=== PATIENT | female | born 1925 | race Caucasian/White ===

== ENCOUNTER 2017-06-23 13:32 | Inpatient (IN) | payer MEDICARE, OTHER ==
[~2017-06-23] VITALS: Ht 170.2 cm; Wt 75.9 kg
--- NOTE | ~2017-06-23 | PN ---
PATIENT:NATHALIE GUERRERO MEDICAL RECORD: [id number] LOCATION:[facility] ADMISSION DATE: 06/23/17 PROGRESS NOTE DATE OF SERVICE: 07/01/2017 SUBJECTIVE: The patient's case was discussed with staff. She has no new complaint. OBJECTIVE: The patient is in good behavioral control with limited insight about her condition. She generally tolerates her medicines well. She is severely impaired cognitively. Her sons from [place] are coming here soon. They are going to take her back to [place]. ASSESSMENT: No change in diagnoses. PLAN: Supportive and educational interventions were made. correction prognosis is guarded. TRANSINT:[id number] Voice Confirmation ID: [id number] DOCUMENT ID: [id number] JOSHUA ADEN MD CC: [id number] DICTATION DATE: 07/01/17 1355 KNITTING MACHINE OPERATOR: 07/01/17 1652 ADM IN [facility] [address] [place] [address]
[2017-06-23 14:06] LABS: BASOPHILS 0.2 % (0-2); EOSINOPHILS 4.2 % (0-7); HEMATOCRIT 39.8 % (36.0-48.0); HEMOGLOBIN 12.8 g/dL (12-16); IMMATURE GRANULOCYTES 0.2 % (0-5); LYMPHOCYTES 13.7 % (15-50); MCH 28.7 pg (26.0-34.0); MCHC 32.2 g/dL (31.0-37.0); MCV 89.2 fL (80.0-100.0); MEAN PLATELET VOLUME 9.2 fL (7.4-10.4); MONOCYTES 7.1 % (2-11); NEUTROPHILS 74.6 % (40-80); RBC 4.46 10x6/uL (4.00-5.40); WBC 5.2 10x3/uL (4.8-10.8)
[2017-06-23 14:21] LABS: ALBUMIN 3.5 g/dL (3.4-5.0); ANION GAP 7.9 mmol/L (8-16); BILIRUBIN - TOTAL 0.46 mg/dL (0.2-1.3); CALCIUM 9.1 mg/dL (8.5-10.1); CARBON DIOXIDE 32.9 mmol/L (21.0-32.0); CREATININE - SERUM 1.2 mg/dL (0.6-1.3); POTASSIUM - SERUM 3.8 mmol/L (3.5-5.1); PROTEIN - SERUM 7.1 g/dL (6.4-8.2)
[2017-06-23 14:32] LABS: PLATELET COUNT 186 10x3/uL (130-400)
[2017-06-23 19:45] VITALS: BP 144/63
[2017-06-23 20:54] VITALS: BMI 26.2
--- NOTE | 2017-06-24 01:42 | NUR ---
NEW ADMIT TO [facility] TO DOCTOR ADEN FROM [facility]. ADMIT FOR ALTERED MENTAL STATUS. CALM AND COOPERATIVE AT THIS TIME. ALERT AND ORIENTED X3 UPON ADMIT. SIGNED ALL ADMIT CONSENTS. ORIENTED TO UNIT. RASH COVERS HER BODY AT THIS TIME. PATIENTS SON "NAA" CALLED AND INFORMED OF ADMIT TO JAIL. PATIENTS STATES THAT SHE HASNT FELT GOOD LATELY AND FINDS IT DIFFICULT TO EXPRESS HERSELF VERBALLY AT TIMES. SHE IS COOPERATIVE AND IN GOOD SPIRITS.
[2017-06-24 06:38] LABS: CHOL - HDL RATIO 3.5 ratio (2.3-4.1); LDL-HDL RATIO 2.3 ratio (1.5-3.5); THYROID STIMULATING HORMONE 1.09 uIU/mL (0.36-3.74)
[2017-06-24 06:43] LABS: HEMOGLOBIN A1C 5.8 % (4.8-6.0)
[2017-06-24 07:57] VITALS: BP 107/80
--- NOTE | 2017-06-24 10:48 | NUR ---
PT IS A&O THIS AM. PT CURRENTLY TALKING WITH DR LAWLER. PT INSISTS SHE SHOULD "NOT BE IN HERE WITH THESE CRAZY PEOPLE." PT ORIENTED TO PLACE AND SITUATION. [facility].
[2017-06-24 13:13] VITALS: BMI 26.1
--- NOTE | 2017-06-24 14:00 | NUR ---
NAA CUEVAS CALLED FOR AN UPDATE ON PATIENT STATUS TODAY.
[2017-06-24 19:26] VITALS: BP 174/77
--- NOTE | 2017-06-24 22:15 | NUR ---
RECEIVED IN BEDROOM. LAYING IN BED WITH EYES OPEN. CALM AND COOPERATIVE WITH CARE AND ASSESSMENTS. EXPRESSING NEEDS AT THIS TIME VERBALLY. ENCOURAGE TO ASK FOR ASSIST. RESTING EYES CLOSED AT THIS TIME. CONTINUE PLAN OF CARE
[2017-06-25 03:48] LABS: APPEARANCE CLOUDY (CLEAR); BILIRUBIN NEGATIVE (NEGATIVE); COLOR DK YELLOW (YELLOW); GLUCOSE NEGATIVE (NEGATIVE); KETONE NEGATIVE (NEGATIVE); LEUKOCYTE ESTERASE 2+ (NEGATIVE); NITRITE POSITIVE (NEGATIVE); PROTEIN NEGATIVE (NEGATIVE); UROBILINOGEN NORMAL (NORMAL)
[2017-06-25 03:53] LABS: BACTERIA MANY /hpf (NONE SEEN); EPITHELIAL CELLS 0-5 /hpf (0-5); RED CELLS - URINE 0-5 /hpf (0-5)
[2017-06-25 07:26] LABS: RAPID PLASMA REAGIN Non Reactive (Non Reactive); VITAMIN D 25 HYDROXY 26.6 ng/mL (30.0-100.0)
[2017-06-25 08:37] VITALS: BP 149/55
[2017-06-25 09:18] LABS: FOLATE (FOLIC ACID) - SERUM 17.1 ng/mL (>3.0)
[2017-06-25 10:08] VITALS: Ht 170.2 cm; Wt 75.9 kg
--- NOTE | 2017-06-25 12:35 | PSY ---
PATIENT NAME:NATHALIE GUERRERO MEDICAL RECORD: [id number] : [birth year] LOCATION:[facility] ADMISSION DATE: 06/23/17 ACCOUNT: [id number] PSYCHIATRIC EVALUATION DATE OF EVALUATION: 06/24/17 IDENTIFYING DATA: The patient is 89 years old and she is admitted to the hospital on a voluntary basis. CHIEF COMPLAINT: Confusion. HISTORY OF PRESENT ILLNESS: The patient went to see her primary care doctor yesterday. She was quite confused at the doctor's office and not making very good sense. She was subsequently referred to us for evaluation. The patient has little or no recollection of these events, says that she thinks she is fine, but then has trouble answering very basic questions. Interestingly, she has already been tested by Dr. Rona Eng who was found her to be in the severe range of impairment. PAST MEDICAL HISTORY: Remarkably clean for this woman who is almost 89 years old and takes no prescription medications. PAST PSYCHIATRIC HISTORY: Negative by her account. Apparently, she has never been diagnosed with dementia, but she clearly has it. FAMILY HISTORY: Unknown. ALLERGIES: PENICILLIN. CURRENT MEDICATIONS: None. SOCIAL HISTORY: The patient is . [place] MENTAL STATUS EXAMINATION: The patient is awake, alert and oriented to person and place only. Her mood is flat. Her affect is constricted. Thought processes are circumstantial. Memory, concentration and abstract abilities are moderately impaired and she denies any active intent to harm herself or others as well as overt psychotic symptoms. ASSETS: Supportive family members. LIABILITIES: Limited insight. DIAGNOSTIC IMPRESSION: AXIS I: Senile dementia of the Alzheimer's type with behavioral disturbances. AXIS II: None. AXIS III: None. AXIS IV: Moderate stressors. AXIS V: Global assessment of functioning is 30. PLAN: At this time, the patient is admitted to the hospital for a comprehensive medical, psychological, and social evaluation. She will be treated with both mood stabilizing and memory enhancing medications. Her long-term prognosis is guarded. TRANSINT:[id number] Voice Confirmation ID: [id number] DOCUMENT ID: [id number] JOSHUA ADEN MD at 1235 CC: [id number] DICTATION DATE: 06/24/17 1413 IMMUNOLOGIST: 06/24/17 1440 ADM IN [facility] [address] [place] [id number]
--- NOTE | 2017-06-25 18:06 | NUR ---
B) Alert, calm, talkative, med compliant, coopoerative, ambulates with walker. I) Meds admin per orders, group therapy provided. R) Taryn meds well. No difficulty noted with expressing self, quite talkative, alert, oriented at this time. P) Cont plan of care including meds and group therapy.
[2017-06-25 19:30] VITALS: BP 165/72
--- NOTE | 2017-06-26 00:45 | NUR ---
B) Patient alert qand oriented, working a puzzle with staff, pleasant and friendly, I) Administered scheduled medicationss, monitored for safety, R) Medication compliant, cooperative, P) Continue plan of care.
[2017-06-26 08:52] VITALS: BP 134/74
--- NOTE | 2017-06-26 12:35 | PN ---
PATIENT:NATHALIE GUERRERO MEDICAL RECORD: [id number] LOCATION:[facility] ADMISSION DATE: 06/23/17 PROGRESS NOTE DATE OF SERVICE: 06/25/2017 SUBJECTIVE: The patient's case was discussed with staff. She has no new complaint. OBJECTIVE: The patient is in good behavioral control with limited insight about her condition. She does tolerate her medicines well. Unfortunately, she is severely impaired cognitively and the pattern objectively looks very much like Alzheimer disease. The testing from Dr. Eng indicated that she is in the severe range and the pattern was also consistent with Alzheimer disease. ASSESSMENT: No change in diagnoses. PLAN: I am going to start the patient on Namenda at a dose of 2.5 mg twice daily. Her long-term prognosis is guarded. Brief supportive and educational interventions were made. TRANSINT:[id number] Voice Confirmation ID: [id number] DOCUMENT ID: [id number] JOSHUA ADEN MD at 1235 CC: [id number] DICTATION DATE: 06/25/17 1247 HEALTH SCIENCES MANAGER: 06/25/17 1634 ADM IN [facility] [address] [place] [address]
--- NOTE | 2017-06-26 14:36 | NUR ---
SW SPOKE WITH PT'S SON, NAA, TO DISCUSS PT'S DISEASE PROGRESSION, COGNITIVE TESTING RESULTS, MEDICATION REGIMEN, DISCHARGE PLANNING, ALZHEIMER'S SUPPORT WEBSITE AND GROUPS, LEVEL OF CARE PLACEMENT CHOICES, CARE GIVING STRESS AND BURNOUT SIGNS AND SYMPTOMS, AND DE-ESCALATION TECHNIQUES.
--- NOTE | 2017-06-26 16:33 | NUR ---
AWAKE, ALERT AND ORIENTED, VERY TALKATIVE. CALM AND COOPERATIVE WITH STAFF AND PEERS. SHE IS PLEASANT AND FRIENDLY. ADMINISTERED PRESCRIBED MEDICA- TIONS. COMPLIANT WITH MEDICATIONS AND UNIT MILIEU. FALL PRECAUTIONS MAINTAINED. WILL CONTINUE PLAN OF CARE.
[2017-06-26 19:23] VITALS: BP 150/63
--- NOTE | 2017-06-27 01:01 | NUR ---
B) Patient alert and oriented, calm and cooperative with care and assessment, friendlky and social with staff and peers, I) Administered schduled medications,monitored for safety, R) Medication compliant. P) Continue plan of care.
--- NOTE | 2017-06-27 07:40 | NUR ---
B) PATIENT IS AWAKE AND ALERT, SHE IS ORIENTED X3, SHE TOLD ME WHERE SHE LIVES AND WHERE SHE IS FROM ORIGINALLY. PATIENT DOES HAVE POOR SHORT TERM MEMORY RECALL SHE HAS ASKED WHAT TIME IS BREAKFAST MULTIPLE TIMES THIS AM. PATIENT AMBULATES INDEPENDENTLY. I) PROVIDE PRESCRIBED MEDS. R) PATIENT IS PLEASANT AND CALM. P) CONTINUE POC.
[2017-06-27 08:16] VITALS: BP 157/67
--- NOTE | 2017-06-27 16:53 | PN ---
PATIENT:NATHALIE GUERRERO MEDICAL RECORD: [id number] LOCATION:[facility] ADMISSION DATE: 06/23/17 PROGRESS NOTE DATE OF SERVICE: 06/26/2017 SUBJECTIVE: The patient's case was discussed with staff. She has no new complaint. OBJECTIVE: The patient is severely impaired cognitively. She clearly has a dementia. She has almost no short-term memory and does not remember anything that we have discussed day to day. She asks the same questions repeatedly. ASSESSMENT: No change in diagnoses. PLAN: Current medicines have been reviewed and will be maintained. Her long-term prognosis is guarded. The patient's son is in [place]. He is making arrangements to bring his mother home with him. He is waiting for us to let him know when she is ready for discharge. TRANSINT:[id number] Voice Confirmation ID: [id number] DOCUMENT ID: [id number] JOSHUA ADEN MD at 1653 CC: [id number] DICTATION DATE: 06/26/17 1242 FORMING MACHINE OPERATOR: 06/26/17 1707 ADM IN [facility] [address] [place] [address]
[2017-06-27 20:44] VITALS: BP 148/51
--- NOTE | 2017-06-28 01:48 | NUR ---
B) Patient alert and oriented, calm and cooperative, friendly and social with staff and peers, I) Administered schduled medications, monitored for falls and safety, R) Medication compliant, pleasant, P) Continue plan of care.
[2017-06-28 08:07] VITALS: BP 159/79
--- NOTE | 2017-06-28 08:29 | PN ---
PATIENT:NATHALIE GUERRERO MEDICAL RECORD: [id number] LOCATION:[facility] ADMISSION DATE: 06/23/17 PROGRESS NOTE DATE OF SERVICE: 06/27/2017 SUBJECTIVE: The patient's case was discussed with staff. She has no new complaint. OBJECTIVE: The patient has poor insight about her situation. She is tolerating her medicines well. ASSESSMENT: No change in diagnoses. PLAN: Current medicines and therapies have been reviewed and will be maintained. Long-term prognosis is guarded. TRANSINT:[id number] Voice Confirmation ID: [id number] DOCUMENT ID: [id number] JOSHUA ADEN MD at 0829 CC: [id number] DICTATION DATE: 06/27/17 171 BROKER IN CHARGE: 06/27/17 2141 ADM IN [place] [id number] [place] [address]
--- NOTE | 2017-06-28 12:02 | NUR ---
B) PATIENT IS AWAKE AND ALERT, SHE HAD A FRIEND CALL AND I ASKED THE PATIENT IF SHE WANTED THIS FRIEND TO KNOW SHE IS HERE, SHE SAID IT WOULD BE OK, HER NAME WAS SHIRA AND SHE GOES TO [place] WITH HER. I) PROVIDE PRESCRIBED MEDS. R) PATIENT IS COMPLIANT WITH MEDS. P) CONTINUE POC.
[2017-06-28 19:00] VITALS: BP 183/69
--- NOTE | 2017-06-29 02:26 | NUR ---
B) Patient alert and oriented, friendly and social with staff and peers, interactive and aware I) Administered schduled medications, monitored for safety, R) medication and unit miliue compliant, P) Continue plan of care.
[2017-06-29 07:00] VITALS: BP 159/64
--- NOTE | 2017-06-29 13:29 | NUR ---
B) PATIENT IS ALERT AND ORIENTED X 3. SHE DOES HAVE SOME SHORT-TERM MEMORY REMALL. CALM AND COOPERATIVE WITH CARE AND ASSESSMENT. AMBULATES INDEPENTLY. I) ADMINISTERED PRESCRIBED MEDICATIONS. VSS. WILL MONITOR FOR SAFETY. R) COMPLIANT WITH MEDICATIONS AND UNIT MILIEU. REDIRECT NEEDED. P) MAINTAIN FALL PRECAUTIONS AND CONTINUE PLAN OF CARE.
[2017-06-29 19:30] VITALS: BP 158/76
--- NOTE | 2017-06-29 21:33 | NUR ---
RECEIVED IN HALLWAY. SITTING WITH STAFF AND PEERS AT HER SIDE. SOCAILIZING AT TIMES. CALM AND COOPERATIVE WITH CARE AND ASSESSMENTS. IN GOOD SPIRITS. ENCOURAGE TO EXPRESS NEEDS. RESTING EYES CLOSED AT THIS TIME. CONTINUE PLAN OF CARE
[2017-06-30 07:00] VITALS: BP 172/75
--- NOTE | 2017-06-30 11:00 | NUR ---
PATIENT IS AWAKE AND ALERT. AMBULATES WITH WALKER. ADMINISTER PRESCRIBED MEDS. COMPLIANT WITH TAKING MEDS. ASSESSMENT COMPLETED. CONTINUE PLAN OF CARE.
--- NOTE | 2017-06-30 13:31 | PN ---
PATIENT:NATHALIE GUERRERO MEDICAL RECORD: [id number] LOCATION:[facility] ADMISSION DATE: 06/23/17 PROGRESS NOTE DATE OF SERVICE: 06/28/2017 SUBJECTIVE: The patient's case was discussed with staff. She has no new complaint. OBJECTIVE: The patient denies intent to harm herself or others. She generally tolerates her medicines well. She does cry a couple of times during my speaking with her and clearly is excessively worried about her situation. ASSESSMENT: No change in diagnoses. PLAN: Current medicines have been reviewed and will be maintained. Long-term prognosis is guarded. I am going to start her on antidepressant medication. TRANSINT:[id number] Voice Confirmation ID: [id number] DOCUMENT ID: [id number] JOSHUA ADEN MD at 1331 CC: [id number] DICTATION DATE: 06/28/17 0856 FEATHER CURLING MACHINE OPERATOR: 06/28/17 1634 ADM IN [place] [id number] [place] [address]
[2017-06-30] MEDS ORDERED: KENALOG 0.025%15 G2 TOPICAL (13:34)
[2017-06-30] MEDS ORDERED: NAMENDA5 MG PO (13:34)
[2017-06-30] MEDS ORDERED: LEXAPRO10 MG PO (13:34)
[2017-06-30] MEDS ORDERED: LISINOPRIL10 MG PO (13:34)
[2017-06-30] MEDS ORDERED: PROTONIX40 MG PO (13:34)
[2017-06-30 20:00] VITALS: BP 144/78
--- NOTE | 2017-06-30 22:57 | NUR ---
RECEIVED IN BEDROOM. RESTING WITH EYES CLOSED. RESPONDS TO VOICE. CALM AND COOPERATIVE WITH CARE AND ASSESSMENTS. ENCOURAGE TO EXPRESS NEEDS. RESTING EYES CLOSED AT THIS TIME. CONTINUE PLAN OF CARE
[2017-07-01 07:00] VITALS: BP 182/85
--- NOTE | 2017-07-01 13:20 | PN ---
PATIENT:NATHALIE GUERRERO MEDICAL RECORD: [id number] LOCATION:[facility] ADMISSION DATE: 06/23/17 PROGRESS NOTE DATE OF SERVICE: 06/30/2017 SUBJECTIVE: The patient's case was discussed with staff. She has no new complaint. OBJECTIVE: The patient is going to be picked up this afternoon by 2 of her son's from [place]. They plan to take her back to [place] and arranged assisted living there. The patient is not aggressive. She says she is in favor of this plan, but then she cannot remember what I have told her about a moment later. I anticipate no serious problems behaviorally with both of her son's with her. Our social media strategist will coordinate, followup, recommendations and prescriptions. TRANSINT:[id number] Voice Confirmation ID: [id number] DOCUMENT ID: [id number] JOSHUA ADEN MD at 1320 CC: [id number] DICTATION DATE: 06/30/17 1342 WINDOWS MIGRATION TECHNICIAN: 06/30/17 1458 ADM IN [place] [id number] [place] [address]
--- NOTE | 2017-07-01 14:09 | NUR ---
PATIENT VERY PLEASANT. TOOK ALL MEDICATIONS WITHOUT DIFFICULTY. DR. ADEN INTO SEE PATIENT. NEW ORDERS RECEIVED FOR DISCHARGE. SON FROM [place] TO COME AND TAKE PATIENT HOME WITH HIM
--- NOTE | 2017-07-01 14:10 | NUR ---
PATIENT PLEASANT. TOOK MEDICATIONS WITHOUT DIFFICULTY. LEGALLY BLIND. SITTING UP IN A WHEELCHAIR IN DAY ROOM.
[2017-07-01 19:15] VITALS: BP 185/79
--- NOTE | 2017-07-01 19:44 | NUR ---
RECEIVED IN DAYROOM. SITTING IN RECLINER READING A BOOK. NOT SOCAILIZING WITH PEERS. CALM AND COOPERATIVE WITH CARE AND ASSESSMENTS. ENCOURAGE TO EXPRESS NEEDS. CONTINUE TO SIT QUIETLY. CONTINUE PLAN OF CARE
--- NOTE | 2017-07-02 08:33 | NUR ---
PT ALERT, EATING BREAKFAST. AM MEDS ADMINISTERED. PT TOOK ALL MEDS. PT DENEIS NEEDS. WCTM.
--- NOTE | 2017-07-02 11:00 | NUR ---
CALM AND COOPERATIVE WITH CARE AND ASSESSMENT. FALL PRECAUTIONS MAINTAINED. SHE IS SCHEDULED TO DISCHARGE HOME WITH SON TODAY. ALL DISCHARGE PAPERWORK REVIEWED AND SENT WITH PATIENT. ALL BELOMGINGS BAGGED AND ACCOUNTED FOR.
== END 2017-07-02 15:58 | disposition home or self-care (01) | DRG 57 ==
LOC: D.ER 13:32 → D.PSYCH 19:40
PROVIDERS: Emergency Medicine; ADMIT Psychiatry & Neurology Psychiatry
DX: G30.1 Alzheimer's disease with late onset (principal); F02.81 Dementia in other diseases classified elsewhere, unspecified severity, with behavioral disturbance; N17.9 Acute kidney failure, unspecified; I10 Essential (primary) hypertension; E78.5 Hyperlipidemia, unspecified; Z74.09 Other reduced mobility; F32.9 Major depressive disorder, single episode, unspecified; N32.81 Overactive bladder